=== PATIENT | female | born 1960 | race Caucasian/White ===

== ENCOUNTER → 2020-09-15 10:47 | Outpatient (CLI) | payer BC, SELFPAY ==
--- NOTE | ~2020-09-15 | MM_ITS ---
EXAMINATION: MM screening elva BI w emmanuel HISTORY: Screening TECHNIQUE: Craniocaudal and mediolateral oblique 3-D tomosynthesis images were obtained and synthetic 2-D images were generated. CAD analysis was submitted and interpreted. COMPARISON: No prior mammogram is available for comparison at this institution. BREAST PARENCHYMAL COMPOSITION: There are scattered areas of fibroglandular density. FINDINGS: There is no evidence of suspicious mass, calcification, or architectural distortion to sugg est malignancy in either breast. There has been no suspicious interval change. IMPRESSION: 1. No mammographic evidence of malignancy. 2. Recommend routine screening mammography in one year. BI-RADS Category 1: Negative Reviewed, dictated and finalized at location A.
--- NOTE | ~2020-09-15 | DEXA_ITS ---
Bone Density Report Name: Leandra Quach Age: 60 Sex: Female Ethnicity: White Date of : 1960 Indication: postmenopausal; screening for osteoporosis; height loss; Referring Provider: FELTON MAHER Study: Bone densitometry was performed. Exam Date: September 15, 2020 Accession number: [id number] Bone Density: Region BMD T-score Z-score Classification AP Spine (L1-L4) 1.337 2.6 4.1 Normal Femoral Neck (Left) 0.795 -0.5 0.8 Normal Total Hip (Left) 1.013 0.6 1.5 Normal Femoral Neck (Right) 0.883 0.3 1.6 Normal Total Hip (Right) 0.957 0.1 1.1 Normal Total Hip Mean 0.985 0.4 1.3 Normal World Health Organization criteria for BMD impression classify patients as: Normal (T-score at or above -1.0), Osteopenia (T-score between -1.0 and -2.5), or Osteoporosis (T-score at or below -2.5). 10-year Fracture Risk: FRAX not reported because: All T-scores for Spine Total, Hip Total, Femoral Neck at or above -1.0 Clinical Information Provided by Patient: Has used the following medications: Vitamin D Patient maximum height was 62 Menopause Age: 55 No regular weight bearing exercise Does not regularly consume dairy products Drinks caffeinated beverages Onset of menses at age 13 Number of children 0 Impression: The patient has normal bone mass. Discussion: BONE DENSITY IS ABOVE THE MINIMUM DESIRABLE LEVEL AT ALL SKELETAL SITES TESTED. This patient?s bone mineral density is above the minimum desirable level (T-score -1.0 or better) at all sites measured. The patient should follow a healthful lifestyle (good nutrition with adequate calcium and vitamin D, and appropriate weight-bearing exercise). Follow-Up: Consider repeating this study in 5 years or sooner if there is some new clinical indication. Reported by: ZARINA on 09/15/2020 11:09:00 AM. Reviewed, dictated and finalized at location AFrancisco STAPLETON
== END ==
PROVIDERS: PCP Family Medicine; Visit Provider Family Medicine
DX: Z12.31 Encounter for screening mammogram for malignant neoplasm of breast (principal); Z78.0 Asymptomatic menopausal state
CPT/HCPCS: 77063; 77067; 77080

== ENCOUNTER 2021-04-24 00:09 | Day surgery (SDC) | payer BC, SELFPAY ==
[2021-04-17 13:26] VITALS: BMI 42.3
[2021-04-24 08:28] VITALS: BP 146/86; RESP 18; TEMP 36.1; BMI 42.3
[2021-04-24] MEDS: LACTATED RINGERS 1,000 ML 150 ML IV CONT (08:34)
[2021-04-24 08:43] LABS: Glucose Point of Care 177 mg/dl (65-105)
--- NOTE | 2021-04-24 08:45 | P.CONGI_ITS ---
Assessment and Plan Assessment and plan (1) Encounter for screening colonoscopy: Code(s): Z12.11 - Encounter for screening for malignant neoplasm of colon Status: Acute Assessment and Plan: Patient presents today for screening colonoscopy. Appears to be at average risk for colon polyps. GI Consult Note Consult date/time: 04/24/21 08:45 HPI: Leandra Quach is a 60 year old female Presents for screening colonoscopy. Patient's current weight appetite bowel movements are normal. she denies abdominal pain. Her bowel habits are regular. she has had no bleeding. Family history is noncontributory patient presents today for neoplasia screening. Review of Systems Review of Systems: All systems reviewed & are unremarkable except as noted in HPI and below PMFSH Past Medical History Medical History (Updated 04/24/21 @ 08:46 by Osiel Meyer MD) Chronic renal insufficiency, stage III (moderate) Depression Diabetes Gastroesophageal reflux HLD (hyperlipidemia) Numbness of left foot Obesity, Class III, BMI 40-49.9 (morbid obesity) Ovarian cyst Severe obstructive sleep apnea Vitamin D deficiency Family History Family History Other Cerebrovascular accident Diabetes mellitus Family history of alcoholism Family history of arthritis Family history of dementia Social History Social History (Updated 01/26/21 @ 10:17 by Jane Hicks CMA) Smoking status: Never smoker Second hand tobacco smoke exposure: No Alcohol intake: never Substance use: never Substance use type: does not use Living arrangements: with family Spiritual care concerns: No Meds Home Medications and Allergies Home Medications Medication Instructions Recorded Confirmed Type blood sugar diagnostic #100 each 05/27/19 04/24/21 Rx exenatide microspheres 2 mg/0.85 2 mg SUBCUT WEEKLY #3.4 ml 03/24/20 04/24/21 Rx mL subcutaneous auto-injector cholecalciferol (vitamin D3) 50 See Rx Instructions .ROUTE 09/18/20 04/24/21 Rx mcg (2,000 unit) capsule .COMPLEX #180 cap glimepiride 2 mg tablet 2 mg PO QAM #90 tablet 09/18/20 04/24/21 Rx simvastatin 20 mg tablet 20 mg PO DAILY #90 tablet 09/18/20 04/24/21 Rx escitalopram oxalate 10 mg tablet 10 mg PO DAILY #90 tablet 11/26/20 04/24/21 Rx metformin 500 mg tablet 1,000 mg PO BID #120 tablet 11/26/20 04/24/21 Rx pioglitazone 30 mg tablet 30 mg PO DAILY #30 tablet 12/05/20 04/24/21 Rx sitagliptin 50 mg tablet 50 mg PO DAILY #30 tablet 04/02/21 04/24/21 Rx clobetasol 1 applic TOPICAL DAILY PRN 04/17/21 04/24/21 History Allergies Allergy/AdvReac Type Severity Reaction Status Date / Time No Known Allergies Allergy Verified 04/24/21 08:26 Vital Signs Vital Signs - 24 hr 04/24/21 08:28 Temperature 96.9 F L Respiratory Rate 18 Blood Pressure 146/86 H Exam Narrative: Physical exam reveals patient be alert. Vital signs stable. HEENT exam is unremarkable. Patient is anicteric. Lungs are clear to auscultation and percussion. Heart is without murmur or extra sounds. Abdominal exam bowel sounds present soft nontender with no organomegaly. Digital external rectal exam is normal.
--- NOTE | 2021-04-24 08:51 | WPDANESEPPF ---
Anes - Initial Pre Proc Eval Procedure: Operation Date: 04/24/21 09:30 Proposed Procedures p Screening Colonoscopy - Osiel Meyer MD Date/Time: 04/24/21 08:51 Surgeon: Osiel Meyer MD Pre Op Diagnosis: neoplasm screening Patient Data Age: 60 Gender: F Height: 1.57 m Weight: 105 kg Last Vital Signs Temp 96.9 F L 04/24/21 08:28 Resp 18 04/24/21 08:28 BP 146/86 H 04/24/21 08:28 Allergies Allergy/AdvReac Type Severity Reaction Status Date / Time No Known Allergies Allergy Verified 04/24/21 08:26 Home Medications Medication Instructions Recorded Confirmed Type blood sugar diagnostic #100 each 05/27/19 04/24/21 Rx exenatide microspheres 2 mg/0.85 2 mg SUBCUT WEEKLY #3.4 ml 03/24/20 04/24/21 Rx mL subcutaneous auto-injector cholecalciferol (vitamin D3) 50 See Rx Instructions .ROUTE 09/18/20 04/24/21 Rx mcg (2,000 unit) capsule .COMPLEX #180 cap glimepiride 2 mg tablet 2 mg PO QAM #90 tablet 09/18/20 04/24/21 Rx simvastatin 20 mg tablet 20 mg PO DAILY #90 tablet 09/18/20 04/24/21 Rx escitalopram oxalate 10 mg tablet 10 mg PO DAILY #90 tablet 11/26/20 04/24/21 Rx metformin 500 mg tablet 1,000 mg PO BID #120 tablet 11/26/20 04/24/21 Rx pioglitazone 30 mg tablet 30 mg PO DAILY #30 tablet 12/05/20 04/24/21 Rx sitagliptin 50 mg tablet 50 mg PO DAILY #30 tablet 04/02/21 04/24/21 Rx clobetasol 1 applic TOPICAL DAILY PRN 04/17/21 04/24/21 History Laboratory Tests 04/24/21 08:41 POC Capillary Glucose 177 mg/dl H mg/dl (65-105) Patient hx anesthesia problems: none Family hx anesthesia problems: none Results Review: All pre-operative results and documents have been reviewed as part of the pre-operative evaluation. [facility] Past Medical History Medical History (Updated 04/24/21 @ 08:46 by Osiel Meyer MD) Chronic renal insufficiency, stage III (moderate) Depression Diabetes Gastroesophageal reflux HLD (hyperlipidemia) Numbness of left foot Obesity, Class III, BMI 40-49.9 (morbid obesity) Ovarian cyst Severe obstructive sleep apnea Vitamin D deficiency Family History Family History Other Cerebrovascular accident Diabetes mellitus Family history of alcoholism Family history of arthritis Family history of dementia Social History Social History (Updated 01/26/21 @ 10:17 by Jane Hicks [facility]) Smoking status: Never smoker Second hand tobacco smoke exposure: No Alcohol intake: never Substance use: never Substance use type: does not use Living arrangements: with family Spiritual care concerns: No Anes - Eval Final PreProcedure Day of Procedure 04/24/21 08:51 Patient weight: morbidly obese Heart: regular rate and rhythm Lungs: clear to auscultation Airway: Mallampati scale class II Neurological: alert and oriented Last oral intake: >/= 8 hours ASA classification: III Emergent: no Anesthetic plan: proceed Anesthesia type and monitoring: general GIVS and standard monitoring Results Review: All pre-operative results and documents have been reviewed as part of the pre-operative evaluation. Informed Consent: The patient's anesthetic plan and its attendant risks and benefits were discussed with the patient/family/POA. Questions were solicited and answers provided to the satisfaction of the patient/family/POA.
[2021-04-24 09:53] VITALS: BP 122/79; PULSE 69; RESP 17; O2SAT 98
[2021-04-24 10:03] VITALS: BP 114/69; PULSE 67; RESP 20; O2SAT 100
[2021-04-24 10:13] VITALS: BP 140/70; PULSE 71; RESP 23; O2SAT 100
== END 2021-04-24 10:22 | disposition home or self-care (01) ==
PROVIDERS: PCP Family Medicine; Visit Provider Internal Medicine Gastroenterology
PROC: 0DJD8ZZ Inspection of Lower Intestinal Tract, Via Natural or Artificial Opening Endoscopic (ICD-10-PCS; CPT 45378; principal; 2021-04-24 09:30)
DX: Z12.11 Encounter for screening for malignant neoplasm of colon (principal); K64.8 Other hemorrhoids; K62.1 Rectal polyp; Z79.84 Long term (current) use of oral hypoglycemic drugs; F32.9 Major depressive disorder, single episode, unspecified; E55.9 Vitamin D deficiency, unspecified; E11.9 Type 2 diabetes mellitus without complications; K21.9 Gastro-esophageal reflux disease without esophagitis; E78.5 Hyperlipidemia, unspecified; G47.33 Obstructive sleep apnea (adult) (pediatric); N28.9 Disorder of kidney and ureter, unspecified; E66.01 Morbid (severe) obesity due to excess calories; Z68.41 Body mass index [BMI] 40.0-44.9, adult
CPT/HCPCS: 45380; 82948; 88305; J2001; J2704; J7120

== ENCOUNTER 2022-01-21 15:20 | Outpatient (CLI) | payer BC, SELFPAY ==
--- NOTE | ~2022-01-21 | US_ITS ---
EXAMINATION: US renal BI DATE: 01/21/2022 16:28 INDICATION: Stage III chronic kidney disease TECHNIQUE: Multiple ultrasound grayscale images of the kidneys were obtained. COMPARISON: None. FINDINGS: The right kidney measures 10.2 x 4.4 x 6.6 cm. The left kidney measures 10.5 x 5.9 x 6.4 cm. The kidn eys demonstrate normal echogenicity. There is a 2.8 cm exophytic hyperechoic mass arising from the mi d right kidney. There is no hydronephrosis in either kidney. No stones identified. The bladder is no rmal. IMPRESSION: 1. 2.8 cm exophytic an echogenic right renal mass which is nonspecific over the high echogenicity is suggestive of fat such as in the setting of an angiomyolipoma. Recommend further evaluation with pre and postcontrast MRI or CT. 2. No hydronephrosis. Reviewed, dictated and finalized at location A. IMPRESSION: 1. 2.8 cm exophytic an echogenic right renal mass which is nonspecific over th e high echogenicity is suggestive of fat such as in the setting of an angiomyol ipoma. Recommend further evaluation with pre and postcontrast MRI or CT. 2. No hydronephrosis.
== END 2022-01-21 15:21 | disposition home or self-care (01) ==
LOC: ANHIMG 15:21
PROVIDERS: PCP Family Medicine; Visit Provider Family Medicine
DX: N18.30 Chronic kidney disease, stage 3 unspecified (principal)
CPT/HCPCS: 76775

== ENCOUNTER 2022-02-01 10:34 | Outpatient (CLI) | payer BC, SELFPAY ==
--- NOTE | ~2022-02-01 | MR_ITS ---
EXAMINATION: MR abdomen wo/w con DATE: 02/01/2022 11:39 INDICATION: Right kidney mass. TECHNIQUE: Magnetic resonance imaging (MRI) of the abdomen was performed without and with 20 mL Multi Bret intravenous contrast. COMPARISON: Ultrasound kidneys 01/21/2022 FINDINGS: The liver, gallbladder, spleen, and adrenal glands are normal. Pancreas divisum is noted. There is a 3.0 cm exophytic mass containing fat in right kidney, consistent with an angiomyolipoma. Left kidney is normal. There are no dilated loops of bowel. There are no pathologically enlarged lymph nodes. The re is no free intraperitoneal fluid. IMPRESSION: 1. 3.0 cm exophytic mass containing fat in right kidney, consistent with an angiomyolipoma. Reviewed, dictated and finalized at location A. IMPRESSION: 1. 3.0 cm exophytic mass containing fat in right kidney, consistent with an ang iomyolipoma.
== END 2022-02-01 10:35 | disposition home or self-care (01) ==
PROVIDERS: PCP Family Medicine; Visit Provider Family Medicine
DX: N28.89 Other specified disorders of kidney and ureter (principal)
CPT/HCPCS: 74183; A9577

== ENCOUNTER 2022-04-02 15:30 | Outpatient (RCR) | payer BC, SELFPAY ==
[2022-02-19 08:12] VITALS: BMI 43.4
[2022-02-19 09:03] VITALS: BMI 43.4
== END 2022-05-07 08:34 | disposition home or self-care (01) ==
LOC: ANHDMC 15:30
PROVIDERS: PCP Family Medicine; Visit Provider Family Medicine
DX: E11.65 Type 2 diabetes mellitus with hyperglycemia (principal); Z71.3 Dietary counseling and surveillance; Z71.89 Other specified counseling
CPT/HCPCS: 97802; G0108

== ENCOUNTER → 2023-05-19 14:45 | Outpatient (CLI) | payer BC, SELFPAY ==
--- NOTE | ~2023-05-19 | XR_ITS ---
XR knee LT min 4V DATE: 05/19/2023 15:08 INDICATION: Left knee pain TECHNIQUE: 4 views COMPARISON: None FINDINGS: Osteopenia. There is severe joint space narrowing at the medial compartment, with mild medi al and more prominent patellofemoral periarticular spurring. No fracture or dislocation or joint effusion, radiopaque intra-articular loose body or chondral calci nosis is noted. No periosteal reaction or bone destruction. IMPRESSION: Osteoarthritis involving the patellofemoral and particularly medial compartments Osteopenia Reviewed, dictated and finalized at location B. E SUPERVISOR
== END ==
PROVIDERS: PCP Family Medicine; Visit Provider Family Medicine
DX: M85.862 Other specified disorders of bone density and structure, left lower leg (principal); M17.12 Unilateral primary osteoarthritis, left knee
CPT/HCPCS: 73564

== ENCOUNTER 2024-02-13 10:00 | Outpatient (RCR) | payer BC, SELFPAY ==
--- NOTE | 2023-12-26 15:14 | OPREHPOC ---
Outpatient Therapy Plan of Care This is a Multidisciplinary Plan of Care that may contain components documented by all disciplines (PT, OT, and ST.) PT Problem 1 PT Problem #1 Knowledge Deficit PT Goal 1 Goal *indep with HEP for water and land exercises Target Visit 8 PT Problem 2 PT Problem #2 Pain PT Goal 1 Goal 1* monitor pain of R hip and L knee as progress activity level 2* pt report with sleeping, awaken 1x/night due to pain Target Visit 8 PT Problem 3 PT Problem #3 Impaired Strength PT Goal 1 Goal increase strength of R and L LE, to improve stability to arthritic R hip and L knee joints; improve mobility skills 1* pt perform mat strengthening exercises x 20 reps single leg standing x 10 sec with good stability 2* R 3* L 4* pt perform 45 minutes of aquatic exercises. Target Visit 8
--- NOTE | 2023-12-26 15:15 | PTOPEVAL1 ---
Assessment and note entered by Brianna Pearce, PT Evaluation Information Assessment Status Evaluation ICD-10 Condition Codes (PT) Pain in right hip M25.551,Pain in left knee M25. 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 sleeping on stomach or side, cannot lie flat or on R hip: awaken 2x/night due to pain; Assessment PT Clinical Summary Leandra has the diagnosis of R hip and L knee arthritis. 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 Self assessment LE functional rating of 60% limitation in activity. Sleep and walking is disrupted due to pain. With the evaluation: she has good ROM and flexibility of LE's, except R hip flexion and IR motions; 2 minute walking test distance is good; decreased strength of hips with single leg standing and abduction motions; pain over R hip and L knee; Discussed aquatic therapy for decreased stress and WB of her LE joints and as a way for weight loss/ fitness. She is interested in aquatic fitness exercises. Skilled PT services are indicated for modalities to decrease pain; therapeutic exercises to increase strength and stability to hip and knee with education for HEP and pain control. Plan of Care Interventions Aquatic Therapy,Electrical Stimulation,Hot Pack/ Cold Pack,Manual Therapy,Neuro Re-education, Carol
--- NOTE | 2024-02-13 10:38 | PTOPDC ---
Assessment and note entered by Brianna Pearce, PT Discharge Report Assessment Status Discharge ICD-10 Condition Codes (PT) Pain in right hip M25.551,Pain in left knee M25. 562,Difficulty Walking R26.2,R26.9,Weakness R53.1 Onset Feb 2023 Subjective Information have had to stop the pain meds because throwing up and trying to figure out what is making her throw up; pain has been more since not taking the pain med, but dr was not going to refill the script; feel her walking and balance are better; more cautious with her posture and positions; have been doing the exercises at home. Reported Pain Level Pain Score 0,0: Self Report Additional Pain Score Comments pain range in the past week: R hip:0-5 /10; more pain at night and with sleeping; L knee: no pain in the past week; --------- with sleeping awaken 0-4 x/night due to R hip pain Assessment PT Clinical Summary Leandra has received 7 PT sessions. Compared to the initial evaluation: pain rating have decreased: R hip from 0-10/10 to 0-5/10 and L knee from 0-5/10 to 0/10 pain; reported sleeping tolerance from awakening 2x/night to 0-4x/night due to R hip pain; increase strength with mat exercises and single leg standing R and L; 2 minute walking test distance from 500' with pain of 8/10 to 580' with no pain in hip or knee after walking; LE functional scale self assessment from 60% to 30% limitation in activity level; education completed for HEP and posture education. The goals were partially met. Discharge PT services. She is to continue with her HEP and increase activity for weight loss, as pain of R hip allows. Plan of Care PT Services Indicated No
== END 2024-02-13 12:30 | disposition home or self-care (01) ==
LOC: ANHPT 10:00
PROVIDERS: PCP Family Medicine; Visit Provider Orthopaedic Surgery
DX: M16.12 Unilateral primary osteoarthritis, left hip (principal); M17.0 Bilateral primary osteoarthritis of knee
CPT/HCPCS: 97110; 97113; 97116; 97161; 97530

== ENCOUNTER 2024-07-07 15:34 | Outpatient (CLI) | payer BC, SELFPAY | END 2024-07-07 15:35 | disposition home or self-care (01) | LOC: MICIMG 15:35 | PROVIDERS: PCP Family Medicine; Visit Provider Family Medicine | DX: Z12.31 Encounter for screening mammogram for malignant neoplasm of breast (principal); R92.8 Other abnormal and inconclusive findings on diagnostic imaging of breast | CPT/HCPCS: 77063; 77067 ==

== ENCOUNTER 2024-08-03 09:08 | Outpatient (CLI) | payer BC, SELFPAY ==
--- NOTE | ~2024-08-03 | MMUS_ITS ---
EXAMINATION: MM diagnostic elva LT w emmanuel, US breast LT limited HISTORY: 64 year woman presents with a developing nodular asymmetry of the subareolar location of the left breast suspected on previous screening mammography dated 07/07/2024. TECHNIQUE: Additional 3-D tomosynthesis images of the left breast were performed and synthetic 2-D im ages were generated. CAD analysis was submitted and interpreted. High resolution limited left breast ultrasound was performed. COMPARISON: 07/07/2024 and dating back to 01/01/2016 BREAST PARENCHYMAL COMPOSITION: Not Dense. There are scattered areas of fibroglandular density. FINDINGS: MAMMOGRAPHIC FINDINGS: Developing nodular asymmetries of the subareolar location of the left breast only faintly persists wi th spot compression for which focused ultrasound will be performed. Punctate calcifications are redemonstrated within the left breast, stable and benign in appearance. ULTRASOUND: Multiple only minimally dilated tubular structures are identified within the retroareolar position of the left breast without internal debris or vascularity, for which ductal ectasia is suspected. 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 No mammographic/tomographic or sonographic evidence to suggest the presence of malignancy. Resumption of yearly mammography is recommended. BI-RADS Category 2: Benign finding(s). Reviewed, dictated and finalized at location A. IMPRESSION: Findings consistent with ductal ectasia corresponding to the abnormality seen m ammographically for which no further dedicated follow-up is needed. No mammographic/tomographic or sonographic evidence to suggest the presence of malignancy. Resumption of yearly mammography is recommended. BI-RADS Category 2: Benign finding(s).
== END 2024-08-03 09:09 | disposition home or self-care (01) ==
LOC: MICIMG 09:09
PROVIDERS: PCP Family Medicine; Visit Provider Student in an Organized Health Care Education/Training Program
DX: N63.0 Unspecified lump in unspecified breast (principal)
CPT/HCPCS: 76642; 77061; 77065; G0279

== ENCOUNTER 2024-12-10 09:16 | Outpatient (CLI) | payer BC, SELFPAY ==
--- OUTSIDE RECORDS SUMMARY | 2024-12-10 09:19 | XMS_ITS | Encounter Summary ---
Author Organization [facility] Address 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 - [address] [address] Titi Tee MD [address] [place] [address] [place] [phone] Routine Gynecological Examination Social History Tobacco Use Types Packs/Day Years Used Date Smoking Tobacco: Never Assessed Comments Unknown Sex and Gender Information Value Date Recorded Sex Assigned at Not on file 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 Gender Identity Not on file Sexual Orientation Not on file documented as of this encounter Plan of Treatment Not on file documented as of this encounter Procedures Procedure Name Priority Date/Time Associated Diagnosis Comments CERV/VAG CYTOPATH, SUREPATH W/RFLX HPV Routine 11/12/2007 10:42 PM CDT documented in this encounter Results * CERV/VAG CYTOPATH, SUREPATH W/RFLX HPV (11/12/2007 10:42 PM CDT) SOURCE Cervix, Endocervix S [facility] LAST MENSTRUAL PERIOD 11/09/07 [facility] CLINICAL INFORMATION Normal exam [facility] REPORT STATUS [facility] CYTOTECHNOLOGI ST: JAR, SCT(ASCP) [facility] PREV PAP: Information not provided [facility] PAP INTERP Negative for intraepithelial lesion. Endometrial Cells identified in a woman 40 years of age or older. [facility] PATHOLOGIST Alistair Bird M.D., Board Certified in Anatomic Pathology and Cytopathology. (electronic signature) [facility] Comment: Lab test performed by: [facility] [address] [place] [address] DIVYA PRICE MD ADEQUACY: Satisfactory for evaluation. Endocervical/trans formation zone component present. [facility] PREV BX: Information not provided [facility] Food Aide Pap Comment The clinical significance of endometrial cells should be interpreted in the context of menstrual history and reproductive status. If out of phase of cycle or after menopause, this finding may be associated with normal functioning endometrium, benign endometrium with stromal breakdown, hormonal alterations and, less commonly, endometrial neoplasia. Clinical correlation is suggested. Based on the cytology result, reflex High Risk HPV DNA testing was not performed. Suggest clinical correlation and follow-up as clinically appropriate [facility] GENERAL CATEGORIZATION : Other; see interpretation/res ult [facility] Specimen from uterine cervix (specimen) 11/12/2007 10:42 PM CDT 11/12/2007 11:16 PM CDT us Titi Tee MD PATHOLOGY/CYTOLOGY ORDERABLE S Final Result [facility] CLIA# [id number] [address] [place] [address] documented in this encounter Visit Diagnoses Diagnosis Routine gynecological examination documented in this encounter Care Teams Sap Business Analyst Relationship Specialty Start Date End Date Page Jones MD [address] [place] [address] PCP - General Family Practice 11/30/10 documented as of this encounter
--- OUTSIDE RECORDS SUMMARY | 2024-12-10 09:19 | XMS_ITS | Encounter Summary ---
Author Organization [facility] Address 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
--- OUTSIDE RECORDS SUMMARY | 2024-12-10 09:19 | XMS_ITS | Encounter Summary ---
Author Organization [facility] Address [address] [place] [address] Care Team Providers Care Floral Assistant Name Role Phone Page Jones MD Primary Care Provider [phone] Encounter Details Date Type Department Care Team (Late st Contact Info) Description 09/26/2003 Outpatient Historical [facility] FLAG DECORATOR - Medical [facility] [id number] [place] [id number] Simon Cardenas MD [id number] [place] [address] Social History Tobacco Use Types Packs/Day Years Used Date Smoking Tobacco: Never Assessed Comments Unknown Sex and Gender Information Value Date Recorded Sex Assigned at Not on file 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
--- OUTSIDE RECORDS SUMMARY | 2024-12-10 09:19 | XMS_ITS | Encounter Summary ---
Author Organization [facility] Address [address] [place] [address] Care Team Providers Care Sewage Plant Operator Name Role Phone Page Jones MD Primary Care Provider [phone] Encounter Details Date Type Department Care Team (Late st Contact Info) Description 11/25/2007 Outpatient Historical [facility] Krissy Hopkins MD Other Screening Mammogram Social History Tobacco Use Types Packs/Day Years Used Date Smoking Tobacco: Never Assessed Comments Unknown Sex and Gender Information Value Date Recorded Sex Assigned at Not on file Legal Sex Female 4:38 AM PHARMACIST Gender Identity Not on file Sexual Orientation Not on file documented as of this encounter Plan of Treatment Not on file documented as of this encounter Procedures Procedure Name Priority Date/Time Associated Diagnosis Comments MAMMO SCREENING BILAT Routine 11/25/2007 3:14 PM CDT documented in this encounter Results * MAMMO SCREENING BILAT (11/25/2007 3:14 PM CDT) Anatomical Region Laterality Modality Breast Bilateral Other 11/25/2007 3:14 PM CDT Narrative 11/27/2007 10:19 AM CDT [address] [address] Admit Date: 11/25/2007 LEANDRA QUACH Sex: F Admit Prov: KRISSY GARCIA Date: 1960 Primary Care Prov: KRISSY GARCIA CMRN: [id number] [id number] [facility] Ordering Prov: KRISSY GARCIA Accession Number: [id number] Interpretation BILATERAL SCREENING MAMMOGRAM. Date: 11/25/2007 History: Routine Screening. Technique: Craniocaudal and mediolateral oblique projections of both breasts were obtained. Comparison: 11/2005 Breast Parenchymal Composition: Scattered fibroglandular densities. Findings: No suspicious mass, suspicious microcalcifications, or architectural distortion in either breast is identified. Since the prior study, there has been no significant interval change. Overall Assessment: BI-RADS category 1: Negative. Recommendation: Annual mammography is recommended. Assessment BIRADS: 1-Negative Recommendation: Normal interval follow-up Dictated by: HILARY CRUZ Electronically signed by: HILARY CRUZ 11/27/2007 10:18 Transcribed: 11/26/2007 20:04 AMK Procedure Note Hilary Cruz - 11/27/2007 [address] [place], [place] [address] Admit Date: 11/25/2007 LEANDRA QUACH Sex: F Admit Prov: KRISSY GARCIA Date:1960 Primary Care Prov: KRISSY GARCIA CMRN: [id number] [facility] [id number] IM[facility] SERVICES Ordering Prov: KRISSY GARCIA Interpretation BILATERAL SCREENING MAMMOGRAM. Date: 11/25/2007 History: Routine Screening. Technique: Craniocaudal and mediolateral oblique projections ofboth breasts were obtained. Comparison: 11/2005 Breast Parenchymal Composition: Scattered fibroglandular densities. Findings: No suspicious mass, suspicious microcalcifications, or architectural distortion in either breast is identified. Since theprior study, there has been no significant interval change. Overall Assessment: BI-RADS category 1: Negative. Recommendation: Annual mammography is recommended. Assessment BIRADS: 1-Negative Recommendation: Normal interval follow-up Dictated by: HILARY CRUZ Electronically signed by: HILARY CRUZ 11/27/2007 10:18 Transcribed: 11/26/2007 20:04 AMK Krissy Espinosa MD MAMMO ORDERABLES Final Result documented in this encounter Visit Diagnoses Diagnosis Other screening mammogram documented in this encounter Care Teams Sewage Plant Operator Relationship Specialty Start Date End Date Page Jones MD [address] [place] [phone] PCP - General Family Practice 11/30/10 documented as of this encounter
--- OUTSIDE RECORDS SUMMARY | 2024-12-10 09:19 | XMS_ITS | Clinical Summary ---
Author Organization [facility] Address [address] [place] [address] Care Team Providers Care Scrap Charger Name Role Phone Page Jones MD Primary Care Provider [phone] Source Comments [facility],non-owned Affiliates and Associated Physician Practices is amultiple site organization consisting of ambulatory clinics and hospital sitesin [place], [place], [place] and [place]. This disclosure is being madepursuant to the Care Everywhere program and may not contain all information available regarding this patient. Last updated 18.[facility] [employer] Allergies No known active allergies Medications * Be aware that medications may not be up to date on this document. Alwaysverify current medications with the patient. JANUVIA 50 MG tablet Take 50 mg by mouth once daily 2 Active simvastatin (ZOCOR) 20 MG tablet Take 20 mg by mouth once daily 2 Active pioglitazone (ACTOS) 30 MG tablet Take 30 mg by mouth once daily 2 Active metFORMIN (GLUCOPHAGE) 500 MG tablet Take 1,000 mg by mouth 2 times daily 2 Active glimepiride (AMARYL) 2 MG tablet TAKE 1 TABLET BY MOUTH EVERY MORNING WITH BREAKFAST 2 Active Vitamin D3 (CHOLECALCIFERO L) 50 MCG (1999) capsule Take 2 capsules by mouth once daily 2 Active BYDUREON BCISE 2 MG/0.85ML AUIJ 2 Active escitalopram (LEXAPRO) 10 MG tablet Take 10 mg by mouth once daily 2 Active Continuous Blood Gluc Sensor (FreeStyle Vincent 2 Sensor Systm) MISC as directed 4 Active OneTouch Ultra test strip USE TO TEST BLOOD SUGAR TWICE DAILY 3 Active Basaglar KwikPen (Basaglar) pen 4 Active BD ULTRA-FINE PEN NEEDLES 29G X 12.7MM MISC USE DIRECTED DAILY 4 Active Active Problems Problem Noted Date Diagnosed Date Unilateral primary osteoarthritis, left hip 01/10 Type 2 diabetes mellitus with hyperglycemia 02/10 Other specified disorders of kidney and ureter 0 02/01/2022 Chronic kidney disease, stage 3 unspecified 01/10 Encounters Date Type Department Care Team Description 10/06/2024 2:40 PM CDT Office Visit [facility] [address] [facility], [facility] [address] [place] [id number] Eddie Abad IV, MD Acute pain of left knee (Primary Dx) from Last 3 Months Social History Tobacco Use Types Packs/Day Years Used Date Smoking Tobacco: Never Assessed Comments Unknown Sex and Gender Information Value Date Recorded Sex Assigned at Not on file Legal Sex Female 4:00 PM CDT Gender Identity Not on file Sexual Orientation Not on file Last Filed Vital Signs Vital Sign Reading Time Taken Comments Blood Pressure - - Pulse - - Temperature - - Respiratory Rate - - Oxygen Saturation - - Inhaled Oxygen Concentration - - Weight 98.4 kg (217 lb) 05/10/2024 3:10 PM SPECIALTY FINISHING UTILITY PERSON Height 152.4 cm (5') 05/10/2024 3:10 PM SPECIALTY FINISHING UTILITY PERSON Body Mass Index 42.38 05/10/2024 3:10 PM SPECIALTY FINISHING UTILITY PERSON Plan of Treatment Upcoming Encounters Date Type Department Care Team (Latest Contact Info) Description 03/03/2025 10:15 AM CDT Appointment [facility] [address] [place], [place] [id number] 04/14/2025 7:15 AM SPECIALTY FINISHING UTILITY PERSON Hospital Encounter [facility] - Perioperative Surgery [address] [place] [address] [place] [address] [place] [address] Surgery General 04/14/2025 7:15 AM SPECIALTY FINISHING UTILITY PERSON - 04/14/2025 9:45 AM SPECIALTY FINISHING UTILITY PERSON Surgery [facility] - Perioperative Surgery [address] [place] [address] [place] [address] [address] [address] ARTHROPLASTY LEFT TOTAL KNEE 05/02/2025 10:45 AM SPECIALTY FINISHING UTILITY PERSON Office Visit [facility] [address] [place] [address], [address] [address] Stephanie Jamison PAPaulC [address] [address] [address] 05/23/2025 10:10 AM SPECIALTY FINISHING UTILITY PERSON Office Visit [facility] [address] [place] [address], [address] [address] [place] [address] [address] 07/04/2025 10:40 AM SPECIALTY FINISHING UTILITY PERSON Office Visit [facility] [address] [place] [address], [address] [address] [place] [address] [address] [address] Scheduled Procedures Name Priority Associated Diagnoses Date/Ti me ARTHROPLASTY TOTAL KNEE 08/2024 7:15 AM SPECIALTY FINISHING UTILITY PERSON Health Maintenance Due Date Last Done Comments COLOGUARD (AGES 45-75) - COLON CA SCREENING 1960 COLON MONITORING 1960 COLONOSCOPY - COLON CA SCREENING 1960 CT COLONOGRAPHY - COLON CA SCREENING 1960 Colorectal Cancer Screening 1960 FIT - COLON CA SCREENING 1960 FLEX SIG - COLON CA SCREENING 1960 HIV SCREENING 1975 HEPATITIS C SCREENING 04/25/1978 DIABETES-SERUM CREATININE 1978 DTAP/TDAP/TD VACCINES (1 - Tdap) 1979 PNEUMOCOCCAL VACCINE 50+ (1 of 2 - PCV) 1979 ZOSTER VACCINE (1 of 2) 2010 PAP SMEAR 03/16/2012 03/16/2009 Respiratory Syncytial Virus (RSV) Vaccine Pt: or over 60 yrs (1 - Risk 60-74 years 1-dose series) 2020 COVID-19 VACCINE (1 - season) 2024 DEPRESSION SCREENING 05/12/2024 DIABETES - URINE PROTEIN SCREENING 05/12/2024 DIABETES RETINOPATHY SCREENING 10/06/2024 DIABETES-FOOT EXAM WITH MONOFILAMENT 10/06/2024 DIABETES-HGB A1C 10/06/2024 INFLUENZA VACCINE (#1) 2025 MAMMOGRAM 02/04/2025 02/04/2023, 01/11, 01/31/2022, Additional history exists HEPATITIS B VACCINE Aged Out No longe r eligible based on patient's age to complete this topic HIB VACCINE Aged Out No longer eligi ble based on patient's age to complete this topic HPV VACCINE Aged Out No longer eligi ble based on patient's age to complete this topic MENINGOCOCCAL (Group B) VACCINE SHARED DECISION-MAKING Aged Out No longer eligible based on patient's age to complete this topic MENINGOCOCCAL GROUPS A/C/Y/W VACCINE Aged Out No longer eligible based on patient's age to complete this topic Insurance [employer] Care Teams Scrap Charger Relationship Specialty Start Date End Date Page Jones MD [address] [place], [place] [id number] PCP - General Family Medicine 11/19/21
--- OUTSIDE RECORDS SUMMARY | 2024-12-10 09:19 | XMS_ITS | Referral Summary ---
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 Gender Identity Not on file Sexual Orientation Not on file Plan of Treatment Not on file Procedures Procedure Name Priority Date/Time Associated Diagnosis Comments SCREENING MAMMOGRAM BILATERAL W JUSTUS Schedule Routine, Read Routine (OP Routine) 02/04/2023 10:33 AM CDT Screening mammogram, encounter for from Last 3 Months or Most Recently Relevant to Health Maintenance Results * Screening Mammogram Bilateral W Justus (02/04/2023 10:33 AM CDT) Anatomical Region Laterality Modality Breast Bilateral Mammography Narrative 02/05/2023 1:20 PM CDT Examination: Screening Mammogram Bilateral W Justus: 02/04/23 Clinical: Screening mammogram, encounter for. Prior Study Comparisons: Comparison was made to the prior available relevant studies at the time of interpretation. Findings: Bilateral No significant masses, malignant type calcifications, skin thickening, nipple retraction, or significant lymphadenopathy is noted in either breast. The CAD review showed no significant findings. The breasts have scattered areas of fibroglandular density. The patient will be notified of results by letter. Impression: BI-RADS ATLAS category (overall): 1 - Negative There is no mammographic evidence of malignancy. Routine Screening Mammogram in 1 Yr is recommended for bilateral Overall Assessment: 1 - Negative us Self Screening Mammogram IMG MAMMO PROCEDURES Fi nal Result from Last 3 Months or Most Recently Relevant to Health Maintenance Insurance [employer] Care Teams Associate Faculty Relationship Specialty Start Date End Date Page Jones MD PCP - General 11/30/18
--- OUTSIDE RECORDS SUMMARY | 2024-12-10 09:19 | XMS_ITS | Encounter Summary ---
Author Organization [facility] Address [address] [place] [address] Care Team Providers Care Lock Maintenance Supervisor Name Role Phone Page Jones MD Primary Care Provider [phone] Encounter Details Date Type Department Care Team (Late st Contact Info) Description 11/08/2003 Outpatient Historical [facility] Simon Cardenas MD [address] [facility] [address] [address] SCREENING MAMM-MAILG NEOPL-OTHER (Primary Dx) Social History Tobacco Use Types Packs/Day Years Used Date Smoking Tobacco: Never Assessed Comments Unknown Sex and Gender Information Value Date Recorded Sex Assigned at Not on file Legal Sex Female 4:38 AM MANAGER INFORMATION Gender Identity Not on file Sexual Orientation Not on file documented as of this encounter Plan of Treatment Not on file documented as of this encounter Visit Diagnoses Diagnosis Other screening mammogram- Primary documented in this encounter Care Teams Lock Maintenance Supervisor Relationship Specialty Start Date End Date Page Jones MD [address] [place] [phone] PCP - General Family Practice 11/30/10 documented as of this encounter
--- OUTSIDE RECORDS SUMMARY | 2024-12-10 09:19 | XMS_ITS | Encounter Summary ---
Author Organization [facility] Address [address] [place] [address] Care Team Providers Care Business Banking Representative Name Role Phone Page Jones MD Primary Care Provider [phone] Encounter Details Date Type Department Care Team (Late st Contact Info) Description 12/17/2004 Outpatient Historical [facility] SURVEILLANCE DIRECTOR - [address] [place] [address] Simon Cardenas MD [address] [facility] [address] [address] Social History Tobacco Use Types Packs/Day Years Used Date Smoking Tobacco: Never Assessed Comments Unknown Sex and Gender Information Value Date Recorded Sex Assigned at Not on file Legal Sex Female 4:38 AM PROGRAMMING ENGINEER Gender Identity Not on file Sexual Orientation Not on file documented as of this encounter Plan of Treatment Not on file documented as of this encounter Visit Diagnoses Not on filedocumented in this encounter Care Teams Business Banking Representative Relationship Specialty Start Date End Date Page Jones MD [address] [place] [address] PCP - General Family Practice 11/30/10 documented as of this encounter
--- OUTSIDE RECORDS SUMMARY | 2024-12-10 09:19 | XMS_ITS | Encounter Summary ---
Author Organization [facility] Address [address] [place] [address] Care Team Providers Care Trading Floor Operator Name Role Phone Page Jones MD Primary Care Provider [phone] Encounter Details Date Type Department Care Team (Late st Contact Info) Description 10/23/2005 Outpatient Historical [facility] RN SPINE - [address] [place] [address] Simon Cardenas MD [address] [facility] [address] [place] [address] Social History Tobacco Use Types Packs/Day Years Used Date Smoking Tobacco: Never Assessed Comments Unknown Sex and Gender Information Value Date Recorded Sex Assigned at Not on file Legal Sex Female 4:38 AM CORRECTIONAL COUNSELOR Gender Identity Not on file Sexual Orientation Not on file documented as of this encounter Plan of Treatment Not on file documented as of this encounter Visit Diagnoses Not on filedocumented in this encounter Care Teams Trading Floor Operator Relationship Specialty Start Date End Date Page Jones MD [address] [place] [address] PCP - General Family Practice 11/30/10 documented as of this encounter
--- OUTSIDE RECORDS SUMMARY | 2024-12-10 09:19 | XMS_ITS | Encounter Summary ---
Author Organization [facility] Address [address] [place] [address] Care Team Providers Care Mobile Equipment Servicer Name Role Phone Page Jones MD Primary Care Provider [phone] Encounter Details Date Type Department Care Team (Late st Contact Info) Description 10/20/2006 Outpatient Historical [facility] BUHR MILL OPERATOR - [address] [place] [address] Simon Cardenas MD [address] [facility] [address] [address] Social History Tobacco Use Types Packs/Day Years Used Date Smoking Tobacco: Never Assessed Comments Unknown Sex and Gender Information Value Date Recorded Sex Assigned at Not on file Legal Sex Female 4:38 AM PEST CONTROL SUPERVISOR Gender Identity Not on file Sexual Orientation Not on file documented as of this encounter Plan of Treatment Not on file documented as of this encounter Visit Diagnoses Not on filedocumented in this encounter Care Teams Mobile Equipment Servicer Relationship Specialty Start Date End Date Page Jones MD [address] [place] [address] PCP - General Family Practice 11/30/10 documented as of this encounter
--- OUTSIDE RECORDS SUMMARY | 2024-12-10 09:19 | XMS_ITS | Encounter Summary ---
Author Organization [facility] Address [address] [place] [address] Care Team Providers Care Accelerator Systems Director Name Role Phone Page Jones MD Primary Care Provider [phone] Encounter Details Date Type Department Care Team (Late st Contact Info) Description 11/17/2006 Outpatient Historical HIS M[facility] Simon Plaza MD [address] [facility] [address] [address] Other Screening Mammogram (Primary Dx) Social History Tobacco Use Types Packs/Day Years Used Date Smoking Tobacco: Never Assessed Comments Unknown Sex and Gender Information Value Date Recorded Sex Assigned at Not on file Legal Sex Female 4:38 AM TOWBOAT ENGINEER Gender Identity Not on file Sexual Orientation Not on file documented as of this encounter Plan of Treatment Not on file documented as of this encounter Visit Diagnoses Diagnosis Other screening mammogram- Primary documented in this encounter Care Teams Accelerator Systems Director Relationship Specialty Start Date End Date Page Jones MD [address] [place] [phone] PCP - General Family Practice 11/30/10 documented as of this encounter
--- OUTSIDE RECORDS SUMMARY | 2024-12-10 09:19 | XMS_ITS | Encounter Summary ---
Author Organization [facility] Address [address] [place] [address] Care Team Providers Care Scrap Drop Crane Operator Name Role Phone Page Jones MD Primary Care Provider [phone] Encounter Details Date Type Department Care Team (Late st Contact Info) Description 09/26/2003 Outpatient Historical [facility] GEAR SHAPER - [address] [place] [address] Simon Cardenas MD [address] [facility] [address] [address] Social History Tobacco Use Types Packs/Day Years Used Date Smoking Tobacco: Never Assessed Comments Unknown Sex and Gender Information Value Date Recorded Sex Assigned at Not on file Legal Sex Female 4:38 AM WELDER PLASMA ARC Gender Identity Not on file Sexual Orientation Not on file documented as of this encounter Plan of Treatment Not on file documented as of this encounter Visit Diagnoses Not on filedocumented in this encounter Care Teams Scrap Drop Crane Operator Relationship Specialty Start Date End Date Page Jones MD [address] [place] [address] PCP - General Family Practice 11/30/10 documented as of this encounter
--- OUTSIDE RECORDS SUMMARY | 2024-12-10 09:19 | XMS_ITS | Clinical Summary ---
Author Organization [facility] Address [address] [address] Care Team Providers Care Diet Assistant Name Role Phone Page Jones MD Primary Care Provider [phone] Social History Tobacco Use Types Packs/Day Years Used Date Smoking Tobacco: Never Assessed Comments Unknown Sex and Gender Information Value Date Recorded Sex Assigned at Not on file Legal Sex Female 9:36 AM VAN CDL DRIVER Gender Identity Not on file Sexual Orientation Not on file Obstetrics History Plan of Treatment Health Maintenance Due Date Last Done Comments Cervical Cancer Screening 1960 Colon Cancer Screening-Colonoscopy 1960 Depression Screening 1960 Hepatitis C Screening 1960 DTaP/Tdap/Td Vaccine (1 - Tdap) 1971 Hepatitis B Screening 1978 Regular Well Visit/Exam 18-64 1978 Zoster Vaccine (1 of 2) 2010 Covid-19 Vaccine ( season) 2024 12/31/2021, 02/21/2021, 08/01/2020, Additional history exists Breast Cancer Screening-Mammogram 02/05/2024 02/04/2023, 01/31/2022, 01/27/2019 Influenza Vaccine (#1) 2025 , 03/05/2020, 02/21/2019, Additional history exists Pneumococcal vaccine <65 Aged Out No longer eligible based on patient's age to complete this topic Procedures Procedure Name Priority Date/Time Associated Diagnosis [...] Most Recently Relevant to Health Maintenance Insurance [facility] [employer] OOS Member Subscriber Plan / Payer (Ef fective 2020-Present) Name:Leandra Quach Relation to Subscriber:Self Name:Leandra Quach Payer ID:[id number] (NAIC) Type:[facility] Address: [facility] [id number] [place] [id number] [employer] CHO[employer] OOS Care Teams Diet Assistant Relationship Specialty Start Date End Date Page Jones MD PCP - General 11/30/18
--- OUTSIDE RECORDS SUMMARY | 2024-12-10 09:19 | XMS_ITS | Clinical Summary ---
Author Organization [facility] Address [address] [place] [address] Care Team Providers Care Family Development Extension Specialist Name Role Phone Page Jones MD Primary Care Provider [phone] Allergies No known active allergies Medications escitalopram (LEXAPRO) 10 mg Oral tablet Take 1 Tab by mouth daily. 30 Tab 1 04/12/2010 Active Family History Medical History Relation Name Comments Breast Cancer Neg Hx Ovarian Cancer Neg Hx Social History Tobacco Use Types Packs/Day Years Used Date Smoking Tobacco: Never Alcohol Use Standard Drinks/Week Comments No 0 (1 standard drink = 0.6 oz pur e alcohol) Comments No Sex and Gender Information Value Date Recorded Sex Assigned at Not on file Legal Sex Female 4:38 AM GENERAL INTERN Gender Identity Not on file Sexual Orientation Not on file Occupation Industry Job Start Date Job End Date Not on file Not on file Not on file Not on file Last Filed Vital Signs Vital Sign Reading Time Taken Comments Blood Pressure 130/80 03/16/2009 3:44 PM GENERAL INTERN Pulse - - Temperature - - Respiratory Rate - - Oxygen Saturation - - Inhaled Oxygen Concentration - - Weight 81.6 kg (180 lb) 03/16/2009 3:44 PM GENERAL INTERN Height 157.5 cm (5' 2) 03/16/2009 3:44 PM GENERAL INTERN Body Mass Index 32.92 03/16/2009 3:44 PM GENERAL INTERN Plan of Treatment Health Maintenance Due Date Last Done Comments DTAP/TDAP/TD VACCINES (1 - Tdap) 1979 HPV/Cotest (21-29) 1981 HPV/Cotest (30-65) 1990 COLORECTAL SCREENING 2005 Colorectal Cancer Screening 2005 FIT-DNA Q 3 years 2005 FIT/FOBT Q 1 year 2005 Flex Sig/CT Colonography Q 5 years 2005 ZOSTER VACCINE (1 of 2) 2010 CERVICAL CANCER SCREENING 03/16/2012 PAP SMEAR 03/16/2012 03/16/2009, 11/12/2007 BREAST CANCER SCREENING 12/31/2017 01/01/20 17, 01/01/2016, 12/29/2014, Additional history exists INFLUENZA VACCINE (#1) 2024 RSV VACCINE (60+ or ) (1 - 1-dose 75+ series) 2035 Procedures Procedure Name Priority Date/Time Associated Diagnosis Comments MAMMO SCREEN BILAT W OR WO CAD Routine 12/31/2016 10:06 AM CDT Visit for screening mammogram CERV/VAG CYTOPATH, SUREPATH W/RFLX HPV Routine 03/16/2009 3:48 PM GENERAL INTERN Routine Gynecological Examination from Last 3 Months or Most Recently Relevant to Health Maintenance Results * MAMMO SCREEN BILAT W OR WO CAD (12/31/2016 10:06 AM CDT) Anatomical Region Laterality Modality Breast Bilateral Mammography Narrative 01/01/2017 1:46 PM CDT Bilateral digital screening mammogram with computer assisted diagnosis History: Annual screening exam. Findings: A bilateral screening mammogram was performed. Comparison is made to : 01/01/2016, 12/29/2014, and 12/28/2013 There are scattered fibroglandular densities. No new masses, suspicious calcifications, or areas of asymmetry or distortion are identified. CAD was utilized. Impression: Negative screening mammogram. Recommendation: Routine annual follow-up Overall Assessment: Birads Category 1: Negative us Page Jones MD MAMMO ORDERABLES Final Result * CERV/VAG CYTOPATH, SUREPATH W/RFLX HPV (03/16/2009 3:48 PM GENERAL INTERN) PAP INTERP Negative for intraepithelial lesion or malignancy. [facility] Blocker And Polisher Pap Comment Based on the cytology result, reflex High Risk HPV DNA testing was not performed. [facility] ADEQUACY: Satisfactory for evaluation. Endocervical/trans formation zone component present. [facility] CLINICAL INFORMATION HEALTHY [facility] SOURCE Endoc[employer]ix [facility] PREV PAP: 11/12/2007 [facility] CYTOTECHNOLOGI ST: [facility], CT(ASCP) [facility] Comment: Lab test performed by: [employer] [facility] [email or web address] [address] KIRBY MERCHANT MD LAST MENSTRUAL PERIOD 11/12/2008 [facility] PREV BX: Information not provided [facility] REPORT STATUS FINAL [facility] Endocervical 03/16/2009 3:48 PM GENERAL INTERN 03/17/2009 11:18 AM GENERAL INTERN Narrative [facility] - 03/21/2009 2:33 PM GENERAL INTERN Previous Pap Date->11/12/07 us Titi Tee MD PATHOLOGY/CYTOLOGY ORDERABLE S Final Result [facility] CLIA# [id number] [address] [place] [address] from Last 3 Months or Most Recently Relevant to Health Maintenance Insurance [employer] PPO [id number] [facility] [employer] PPO [id number] Care Teams Family Development Extension Specialist Relationship Specialty Start Date End Date Page Jones MD [address] [place] [id number] PCP - General Family Practice 11/30/10
--- NOTE | 2024-12-10 09:23 | ECG_ITS ---
Test Date: 2024-12-10 09:35:38 Measurements Intervals [place] Rate: 70 P: 42 NE: 242 QRS: -15 QRSD: 89 T: 12 QT: 357 QTc: 386 Interpretive Statements SINUS RHYTHM WITH FIRST DEGREE AV BLOCK LOW QRS VOLTAGE IN PRECORDIAL LEADS PATTERN CONSISTENT WITH PULMONARY DISEASE VOLTAGE CRITERIA FOR LVH BASELINE ARTIFACT- II, III BORDERLINE ECG No previous ECG available for comparison Electronically Signed On 12-10-2024 09:46:40 CDT by Fawad Negrete D.O.
== END 2024-12-10 09:17 | disposition home or self-care (01) ==
PROVIDERS: PCP Family Medicine; Visit Provider Family Medicine
DX: Z01.818 Encounter for other preprocedural examination (principal); E78.5 Hyperlipidemia, unspecified
CPT/HCPCS: 93005